=== PATIENT | male | born 1955 | race Caucasian/White ===

== ENCOUNTER 2017-10-19 18:22 | Inpatient (IN) | payer MEDICARE ==
[~2017-10-19] VITALS: Ht 188 cm; Wt 91.0 kg
[~2017-10-19 18:22] MED LIST: HYDACE10B; IBUP600; LISI20
[2017-10-19 19:54] LABS: Albumin, Blood 3.4 g/dL (3.4-5.0); Albumin/Globulin Ratio 1.1 (0.8-1.8); Bilirubin, Total 0.3 mg/dL (0.1-1.0); Bun/Creatinine Ratio 24.2 (12.0-20.0); Calcium, Blood 8.8 mg/dL (8.5-10.1); Creatinine, Blood 2.48 mg/dL (0.60-1.20); Globulin, Blood 3.1 g/dL (2.2-4.0); Potassium, Blood 4.9 mmol/L (3.5-5.5); Total Protein, Blood 6.5 g/dL (6.4-8.2)
[2017-10-19] MEDS ORDERED: ALBU3IS INH (21:51)
[2017-10-19] MEDS ORDERED: CALCIUM + D3 E1 EACH PO (21:51)
[2017-10-19] MEDS ORDERED: DULO60 (21:51)
[2017-10-19] MEDS ORDERED: FISH OIL 1,0001 EAC1 PO (21:52)
[2017-10-19] MEDS ORDERED: CHOL10002 (21:52)
[2017-10-19] MEDS ORDERED: VITAMIN D250000 UNIT PO (21:52)
[2017-10-19] MEDS ORDERED: GABA300 PO (21:52)
[2017-10-19] MEDS ORDERED: Motion Sickness25 M2 PO (21:53)
[2017-10-19] MEDS ORDERED: LISI20 PO (21:53)
[2017-10-19] MEDS ORDERED: Hair, Skin & N1 EACH PO (21:54)
[2017-10-19] MEDS ORDERED: OMEPRAZOLE MAGN20 MG PO (21:54)
[2017-10-20] MEDS ORDERED: CALCIUM 500 +1 EAC3 PO (00:47)
[2017-10-20] MEDS ORDERED: CHOL10002 (00:48)
[2017-10-20] MEDS ORDERED: FISH OIL 1,0001 EAC1 PO (00:49)
[2017-10-20] MEDS ORDERED: Percocet 5-3251 EACH PO ×2 (00:53→00:54)
[2017-10-20 01:58] LABS: Eosinophils-Raw #,Urine 0; White Blood Cells Urine Rare /hpf (0-5)
[2017-10-20 04:07] LABS: Bun/Creatinine Ratio 30.9 (12.0-20.0); Calcium, Blood 8.6 mg/dL (8.5-10.1); Creatinine, Blood 1.65 mg/dL (0.60-1.20); Potassium, Blood 4.9 mmol/L (3.5-5.5)
[2017-10-21 02:09] LABS: Source, Urine Clean Catch
[2017-10-21 02:18] LABS: Bilirubin, Urine Neg (Neg); Blood, Urine 2+ (Neg); Glucose Qualitative, Urine Neg (Neg); Ketones, Urine Neg (Neg); Leukocyte Esterase, Urine Neg (Neg); Nitrite, Urine Neg (Neg); Protein, Urine Neg (Neg); Specific Gravity, Urine 1.015 (1.003-1.022); Urobilinogen, Urine NORM (Normal)
[2017-10-21 02:33] LABS: Appearance, Urine Clear (Clear); Color, Urine Yellow (P-Yellow)
[2017-10-21 02:34] LABS: Bacteria Not Seen /hpf; Red Blood Cells, Urine 0-2 /hpf (0-2); Squamous Epithelial Cells Not Seen /hpf (Few); White Blood Cells, Urine Not Seen /hpf (0-5)
[2017-10-21 03:55] LABS: BASOPHILS ABSOLUTE AUTO 0.02 K/mm3 (0.00-0.23); BASOPHILS PERCENT AUTO 0 % (0-2); EOSINOPHILS ABSOLUTE AUTO 0.15 K/mm3 (0.00-0.68); EOSINOPHILS PERCENT AUTO 3 % (0-6); Hematocrit 34.2 % (37.0-53.0); Hemoglobin 10.8 g/dL (13.5-17.5); IMMATURE GRAN ABSOLUTE AUTO 0.02 K/mm3 (0.00-0.10); IMMATURE GRAN PERCENT AUTO 0 % (0-1); LYMPHOCYTES ABSOLUTE AUTO 2.58 K/mm3 (0.84-5.20); LYMPHOCYTES PERCENT AUTO 44 % (21-46); MONOCYTES ABSOLUTE AUTO 0.61 K/mm3 (0.16-1.47); MONOCYTES PERCENT AUTO 10 % (4-13); Mean Corpuscular HGB 31.4 pg (26.0-34.0); Mean Corpuscular HGB Conc 31.6 g/dL (31.5-36.5); Mean Corpuscular Volume 99 fL (80-100); Mean Platelet Volume 10.3 fL (9.1-12.4); NEUTROPHILS ABSOLUTE AUTO 2.46 K/mm3 (1.96-9.15); NEUTROPHILS PERCENT AUTO 42 % (41-73); Platelet Count 179 K/mm3 (150-400); RDW Coefficient Variation 13.2 % (11.7-14.2); RDW Standard Deviation 47.7 fL (35.1-46.3); Red Blood Cell Count 3.44 M/mm3 (4.30-5.90); White Blood Cell Count 5.84 K/mm3 (4.00-11.30)
[2017-10-21 04:12] LABS: Anion Gap 5 mmol/L (6-16); Blood Urea Nitrogen 28 mg/dL (8-24); Bun/Creatinine Ratio 30.3 (12.0-20.0); CO2, Blood 28 mmol/L (21-32); Calcium, Blood 8.3 mg/dL (8.5-10.1); Chloride, Blood 110 mmol/L (98-108); Creatinine, Blood 0.93 mg/dL (0.60-1.20); Glomerular Filtration Rate >60 (60-); Glucose, Blood 104 mg/dL (70-99); Phosphorus, Blood 2.8 mg/dL (2.5-4.9); Potassium, Blood 4.8 mmol/L (3.5-5.5); Sodium, Blood 143 mmol/L (136-145)
[2017-10-22] MEDS ORDERED: OMEPRAZOLE MAGN20 MG PO (10:38)
== END 2017-10-22 13:05 | disposition home or self-care (01) | DRG 684 ==
LOC: ER 18:22 → PCU 23:23
PROVIDERS: Emergency Medicine; Internal Medicine
DX: N17.9 Acute kidney failure, unspecified (principal); I10 Essential (primary) hypertension; E78.5 Hyperlipidemia, unspecified; K21.9 Gastro-esophageal reflux disease without esophagitis; M81.0 Age-related osteoporosis without current pathological fracture; F17.210 Nicotine dependence, cigarettes, uncomplicated; I95.1 Orthostatic hypotension; E87.5 Hyperkalemia; R42 Dizziness and giddiness; E86.0 Dehydration; G47.33 Obstructive sleep apnea (adult) (pediatric); F32.9 Major depressive disorder, single episode, unspecified
CPT/HCPCS: 36415; 70450; 71250; 74176; 80048; 80053; 80069; 81001; 82570; 84540; 85025; 87205; 94640; 94760; 96360; 96361; 99285; J7030; J7120

== ENCOUNTER 2020-05-29 13:57 | Emergency (ER) | payer MEDICARE ==
[~2020-05-29] VITALS: Ht 193 cm; Wt 95.2 kg
[~2020-05-29 13:57] MED LIST changes: +ALBU3IS INH; +CALCIUM + D3 E1 EACH PO; +CALCIUM 500 +1 EAC3 PO; +CHOL10002; +DULO60; +FISH OIL 1,0001 EAC1 PO; +GABA300 PO; +Hair, Skin & N1 EACH PO; +LISI20 PO; +Motion Sickness25 M2 PO; +OMEPRAZOLE MAGN20 MG PO; +Percocet 5-3251 EACH PO; +VITAMIN D250000 UNIT PO
[2020-05-29 14:25] LABS: PO2 Arterial 75.7 mmHg (80-100)
[2020-05-29 14:26] LABS: PCO2 Arterial 98 mmHg (35-45); pH Blood Arterial 7.27 (7.35-7.45)
[2020-05-29 14:31] LABS: BASOPHILS ABSOLUTE AUTO 0.03 K/mm3 (0.00-0.23); BASOPHILS PERCENT AUTO 1 % (0-2); EOSINOPHILS PERCENT AUTO 2 % (0-6); Hematocrit 54.1 % (37.0-53.0); Hemoglobin 15.5 g/dL (13.5-17.5); IMMATURE GRAN ABSOLUTE AUTO 0.03 K/mm3 (0.00-0.10); IMMATURE GRAN PERCENT AUTO 1 % (0-1); LYMPHOCYTES ABSOLUTE AUTO 1.61 K/mm3 (0.84-5.20); LYMPHOCYTES PERCENT AUTO 25 % (21-46); MONOCYTES ABSOLUTE AUTO 0.42 K/mm3 (0.16-1.47); MONOCYTES PERCENT AUTO 7 % (4-13); Mean Corpuscular HGB 29.5 pg (26.0-34.0); Mean Corpuscular HGB Conc 28.7 g/dL (31.5-36.5); Mean Corpuscular Volume 103 fL (80-100); Mean Platelet Volume 9.1 fL (9.1-12.4); NEUTROPHILS ABSOLUTE AUTO 4.28 K/mm3 (1.96-9.15); NEUTROPHILS PERCENT AUTO 66 % (41-73); Platelet Count 180 K/mm3 (150-400); RDW Coefficient Variation 13.6 % (11.7-14.2); RDW Standard Deviation 52.6 fL (35.1-46.3); Red Blood Cell Count 5.25 M/mm3 (4.30-5.90); White Blood Cell Count 6.47 K/mm3 (4.00-11.30)
[2020-05-29] MEDS ORDERED: ATOR40TA PO (14:45)
[2020-05-29] MEDS ORDERED: FINA5 PO (14:45)
[2020-05-29] MEDS ORDERED: ASPIR 8181 M1 PO (14:46)
[2020-05-29] MEDS ORDERED: ACET500 PO (14:46)
[2020-05-29 14:51] LABS: Alanine Aminotransfer (ALT/SGP 24 U/L (12-78); Albumin, Blood 3.3 g/dL (3.4-5.0); Albumin/Globulin Ratio 0.9 (0.8-1.8); Alk Phos 62 U/L (50-136); Anion Gap 4 mmol/L (6-16); Aspartate Aminotrans (AST/SGOT 24 U/L (12-37); Bilirubin, Total 0.4 mg/dL (0.1-1.0); Blood Urea Nitrogen 25 mg/dL (8-24); Bun/Creatinine Ratio 36.8 (12.0-20.0); CO2, Blood 39 mmol/L (21-32); Calcium, Blood 8.4 mg/dL (8.5-10.1); Chloride, Blood 93 mmol/L (98-108); Creatinine, Blood 0.68 mg/dL (0.60-1.20); Globulin, Blood 3.7 g/dL (2.2-4.0); Glomerular Filtration Rate >60 (60-); Glucose, Blood 283 mg/dL (70-99); Potassium, Blood 4.2 mmol/L (3.5-5.5); Sodium, Blood 136 mmol/L (136-145); Troponin I <0.015 ng/mL (0.000-0.040)
[2020-05-29] MEDS ORDERED: ALBU90OI INH (17:40)
[2020-05-29] MEDS ORDERED: QVAR REDIHALE10.6 G3 INH (17:40)
[2020-05-29] MEDS ORDERED: PRED10 PO (17:40)
== END 2020-05-29 17:55 | disposition home or self-care (01) ==
LOC: ER 13:57
PROVIDERS: Physician Assistant
DX: J44.9 Chronic obstructive pulmonary disease, unspecified (principal); I10 Essential (primary) hypertension; E78.5 Hyperlipidemia, unspecified; F17.200 Nicotine dependence, unspecified, uncomplicated; Z79.82 Long term (current) use of aspirin; Z79.899 Other long term (current) drug therapy
CPT/HCPCS: 36415; 36600; 71045; 80053; 82803; 83880; 84443; 84484; 85025; 93005; 93010; 94640; 99285-25; A9270